=== PATIENT | male | born 1980 | race Caucasian/White ===

== ENCOUNTER 2023-04-08 12:59 | Emergency (ER) | payer BC ==
[2023-04-08 13:15] VITALS: BP 124/81; PULSE 76; RESP 18; TEMP 98.4; BMI 23.7
[2023-04-08 14:38] LABS: EPI CELLS 3 /uL (0-25.1); HYALINE CASTS 0 /uL (0-3.1); PH,URINE 5.5 (5.0-8.0); URINE APPEARANCE CLOUDY; URINE BACTERIA 2965 /uL (0-1359); URINE BILIRUBIN NEGATIVE (NEGATIVE); URINE COLOR YELLOW; URINE GLUCOSE (UA) NEGATIVE (NEGATIVE); URINE KETONE NEGATIVE (NEGATIVE); URINE LEUK ESTERASE 3+ (NEGATIVE); URINE NITRITE NEGATIVE (NEGATIVE); URINE PROTEIN NEGATIVE (NEGATIVE); URINE RBC 15 /uL (0-23.9); URINE UROBILINOGEN 0.2 mg/dL (0.2-1.0); URINE WBC 1196 /uL (0-25.8)
== END 2023-04-08 14:59 | disposition home or self-care (01) ==
LOC: JERFT 12:59
DX: N48.89 Other specified disorders of penis (principal); R82.998 Other abnormal findings in urine; R30.9 Painful micturition, unspecified; R30.0 Dysuria
CPT/HCPCS: 81003; 87086; 87186; 99283-25